=== PATIENT | female | born 1965 | race American Indian/Alaskan Native ===

== ENCOUNTER 2017-04-11 19:37 | Emergency (ER) | payer OTHER ==
[2017-04-11 20:49] LABS: Anion Gap 17 mmol/L; BUN/Creatinine Ratio 16; Blood Urea Nitrogen 11 mg/dL (7-17); Calcium 8.7 mg/dL (8.4-10.2); Carbon Dioxide 24 mmol/L (22-30); Chloride 101.5 mmol/L (98-107); Glucose 73 mg/dL (65-100); Potassium 3.8 mmol/L (3.6-5.0); Sodium 139 mmol/L (137-145)
--- NOTE | 2017-04-11 20:50 | Cat Scan Report ---
FINAL REPORT EXAM: CT HEAD/BRAIN WO CON HISTORY: neuro deficits < 6hrs or sx present upon awakening TECHNIQUE: Axial noncontrast CT images of the brain. Total exam DLP 1604.74 mGy-cm Comparison: None FINDINGS: Slit-like lateral ventricles, smaller than expected for the patient's age. No definite loss of the lacey-white junction however. No blood products. No midline shift. No mass effect. Ill-defined 10 millimeter hypodensity right posterior frontal lobe image 47. Cortical infarct not entirely be excluded. Clear imaged paranasal sinuses. No displaced calvarial fracture. IMPRESSION: No definite loss of the lacey-white differentiation but slit-like lateral ventricles are smaller than expected for the patient's age. There is crowding of the sulci versus lack of atrophy. Diffuse cerebral edema cannot be excluded. Ill-defined 10mm hypodensity right posterior frontal lobe are present. Recommend MR brain with diffusion-weighted imaging. No blood products. Findings are called and discussed with referring clinician, Dr. Pena, on 04/11/2017 at 2041 hours.
[2017-04-11 20:55] LABS: Basophils % (Auto) 0.5 % (0.0-1.8); Eosinophils % (Auto) 3.2 % (0.0-4.3); Hematocrit 40.4 % (30.3-42.9); Hemoglobin 13.4 gm/dl (10.1-14.3); Mean Corpuscular HGB Conc 33 % (30-34); Mean Corpuscular Hemoglobin 28 pg (28-32); Mean Corpuscular Volume 85 fl (79-97); Platelet Count 348 K/mm3 (140-440); Red Blood Count 4.75 M/mm3 (3.65-5.03); Red Cell Distribution Width 13.9 % (13.2-15.2); White Blood Count 9.8 K/mm3 (4.5-11.0)
[2017-04-11 21:09] LABS: INR 0.94 (0.87-1.13)
[2017-04-11 21:10] LABS: Partial Thromboplastin Time 32.1 Sec. (24.2-36.6)
--- NOTE | 2017-04-12 06:27 | Emergency Department Report ---
HPI - General Chief Complaint: Neuro Symptoms/Deficit Time Seen by Provider: 04/12/17 06:06 - HPI HPI: The patient's 51-year-old female who presents for evaluation of chest pain and right arm pain. The patient reports left-sided chest pain since 2 PM yesterday , approximately 16 hours prior to my evaluation, sharp in quality, 8/10 in severity, worse with movement of the arms, and associated with right-sided arm pain. She states that her arm pain is present throughout the entire arm, is also a/10 in severity, aching in quality, radiates from the mid bicep down to the distal forearm. She has a secondary complaint of bilateral fingertip and hand numbness constant for the past one month, not worsening or improving, without exacerbating or relieving factors. She denies, injury to the head or neck, headache, dyspnea, cough, syncope, hemoptysis, neck pain or stiffness, pain radiating from the neck, other paresthesias, any motor deficits, other focal neurological deficit. ED Past Medical Hx - Past Medical History Hx Hypertension: Yes Hx Asthma: Yes - Social History Smoking Status: Current Some Day Smoker Substance Use Type: None - Medications Home Medications: Home Medications Medication Instructions Recorded Confirmed Last Taken Type Amoxicillin [Amoxicillin TAB] 875 mg PO BID #20 tablet 04/23/14 Unknown Rx Fluticasone [Flonase] 1 spray NS QDAY #1 bottle 04/23/14 Unknown Rx Phenazopyridine [Pyridium] 200 mg PO TID PRN #6 tablet 04/23/14 Unknown Rx Sulfamethoxazole/Trimethoprim 1 each PO BID #14 tablet 04/23/14 Unknown Rx [Bactrim Ds] Cetirizine HCl [Allergy Relief] 10 mg PO DAILY #10 tablet 02/19/15 Unknown Rx Amoxicillin/K Clav Tab [Augmentin 1 tab PO Q12HR #20 tab 09/06/15 Unknown Rx 875MG TAB] Fluticasone [Flonase] 1 spray NS QDAY #1 bottle 09/06/15 Unknown Rx Lisinopril/Hydrochlorothiazide 1 tab PO QDAY #90 tablet 09/06/15 Unknown Rx [Zestoretic 10-12.5 mg] Prednisone [predniSONE 10 mg 10 mg PO .TAPER #1 tab.ds.pk 09/06/15 Unknown Rx (6-Day Pack, 21 Tabs)] traMADol [Ultram 50 MG tab] 50 mg PO Q6HR PRN #14 tablet 09/06/15 Unknown Rx Cyclobenzaprine HCl [Flexeril 5 MG 5 mg PO Q8HR PRN #15 tab 04/12/17 Unknown Rx TAB] Ibuprofen [Motrin] 800 mg PO Q8HR PRN #15 tablet 04/12/17 Unknown Rx ED Review of Systems ROS: Stated complaint: HTN Other details as noted in HPI Constitutional: denies: fever ENT: denies: throat or neck pain Respiratory: denies: cough, shortness of breath Cardiovascular: reports: chest pain Endocrine: denies unexplained weight loss or gain Gastrointestinal: denies: abdominal pain, nausea Genitourinary: denies: dysuria Musculoskeletal: reports arm pain denies: leg swelling Skin: denies: rash Neurological: denies: headache Hematological/Lymphatic: denies: easy bleeding or easy bruising Psych: denies sadness or hopelessness Physical Exam - Physical Exam Vital Signs: Vital Signs 04/11/17 04/12/17 04/12/17 19:48 01:15 01:30 Temperature 98 F Pulse Rate 71 66 61 Respiratory 16 22 20 Rate Blood Pressure 124/84 116/80 121/81 O2 Sat by Pulse 99 98 98 Oximetry 04/12/17 04/12/17 04/12/17 01:40 01:45 02:00 Temperature Pulse Rate 61 61 Respiratory 18 20 18 Rate Blood Pressure 116/80 116/76 O2 Sat by Pulse 97 97 95 Oximetry 04/12/17 04/12/17 04/12/17 02:31 03:00 03:30 Temperature Pulse Rate 65 60 58 L Respiratory 17 20 18 Rate Blood Pressure 139/89 109/72 107/68 O2 Sat by Pulse 95 96 95 Oximetry 04/12/17 04/12/17 04/12/17 04:00 04:30 05:00 Temperature Pulse Rate 58 L 61 61 Respiratory 19 21 14 Rate Blood Pressure 124/76 118/70 128/72 O2 Sat by Pulse 96 96 94 Oximetry 04/12/17 05:30 Temperature Pulse Rate 58 L Respiratory 18 Rate Blood Pressure 126/80 O2 Sat by Pulse 96 Oximetry Physical Exam: General: well-nourished, well-developed, no acute distress Head: Normocephalic, atraumatic Eyes: normal sclera, PERRL, EOM intact ENT: Mucous membranes are pink and moist Neck: trachea midline, neck supple, No neck stiffness, no cervical adenopathy Respiratory: Breath sounds equal bilaterally, no wheezing, rales, or rhonchi Cardio: S1 and S2 present, no murmurs, rubs, gallops, capillary refill is brisk Abdomen: Normoactive bowel sounds, soft abdomen, no rigidity, no guarding or rebound tenderness Chest WALL/Back: No tenderness to palpation of the chest wall Musc: Right biceps and ventral surface forearm tenderness to palpation present, most compartments are soft and pliable, inspection normal, no redness, ecchymosis, purpura, swelling, fluctuance, crepitus, deformity, or warmth to the entire right arm, sensation motor function intact throughout the right arm and hand, reported decrease in sensation presents to the distal digits of the hands bilaterally, reflexes 2+ symmetric in the upper and lower semis bilaterally, distal pulses intact, capillary refill brisk in the digits bilaterally Skin: No rash Neuro: alert oriented x4, normal cognition, speech normal, no facial drooping, no uvula or tongue deviation on protrusion, no deficit with rotation of neck or shoulder shrug, no obvious gross motor deficit in the upper or lower extremities with flexion or extension at the shoulder, elbow, wrist, hip, knee, or ankle bilaterally, no obvious gross sensation deficit, 2+ symmetric reflexes on DTR testing, no coordination deficit with [id number] or [id number] testing, romberg negative, patient able to to ambulate without abnormal gait Psych: Normal affect ED Course Vital Signs 04/11/17 04/12/17 04/12/17 19:48 01:15 01:30 Temperature 98 F Pulse Rate 71 66 61 Respiratory 16 22 20 Rate Blood Pressure 124/84 116/80 121/81 O2 Sat by Pulse 99 98 98 Oximetry 04/12/17 04/12/17 04/12/17 01:40 01:45 02:00 Temperature Pulse Rate 61 61 Respiratory 18 20 18 Rate Blood Pressure 116/80 116/76 O2 Sat by Pulse 97 97 95 Oximetry 04/12/17 04/12/17 04/12/17 02:31 03:00 03:30 Temperature Pulse Rate 65 60 58 L Respiratory 17 20 18 Rate Blood Pressure 139/89 109/72 107/68 O2 Sat by Pulse 95 96 95 Oximetry 04/12/17 04/12/17 04/12/17 04:00 04:30 05:00 Temperature Pulse Rate 58 L 61 61 Respiratory 19 21 14 Rate Blood Pressure 124/76 118/70 128/72 O2 Sat by Pulse 96 96 94 Oximetry 04/12/17 05:30 Temperature Pulse Rate 58 L Respiratory 18 Rate Blood Pressure 126/80 O2 Sat by Pulse 96 Oximetry ED Medical Decision Making - Lab Data Result diagrams: 04/11/17 20:10 04/11/17 20:10 - Medical Decision Making The patient was seen and examined by myself. The patient is placed on a awake overnight monitor and continuous pulse ox. On initial evaluation, the patient was found to be in no distress. EKG was negative for findings suggestive of acute cardiac infarct. Labs and imaging are obtained. The patient is given IM pain medicine. Chest x-ray is negative for pneumothorax, focal consolidation, pulmonary vascular congestion, pleural effusion, or other obvious acute cardiopulmonary disease process. Lab results were non-concerning including levels of troponin, WBC, hemoglobin, hematocrit, electrolytes, renal function. CT scan of the head is negative for acute or emergent intracranial disease process. There was a right posterior frontal lobe hypodensity identified not consistent with etiology of patient's symptoms as strokes do not cause isolated pain. The patient was reevaluated and reported that their symptoms were markedly improved. As the patient has a ELEANOR risk score less than 2, and a well 's score less than 2, the patient is at low risk of ACS or pulmonary emboli etiology of their symptoms. The patient is stable for discharge with outpatient follow-up. The patient is given follow-up and return instructions. The patient expressed understanding and agreed with the plan. The patient is discharged in stable condition. Critical care attestation.: If time is entered above; I have spent that time in minutes in the direct care of this critically ill patient, excluding procedure time. ED Disposition Clinical Impression: Acute chest pain, Pain of right upper extremity Disposition: - TO HOME OR SELFCARE Is pt being admited?: No Does the pt Need Aspirin: No Condition: Stable Instructions: Chest Pain (ED), Musculoskeletal Pain (ED), Muscle Strain (ED) Additional Instructions: Make sure to follow-up with neurologist yet been referred to today for arrangement of an outpatient MRI to further evaluate the incidental frontal brain lobe abnormality identified on your CT scan today. Referrals: PRIMARY CARE, [Primary Care Provider] - 3-5 Days MJ GOODMAN MD [Staff Physician] - 3-5 Days BRODIE COOK MD [Staff Physician] - 3-5 Days Time of Disposition: 06:26
[2017-04-12] MEDS ORDERED: TORADOL IM ONE (06:49)
[2017-04-12] MEDS ORDERED: TYLENOL PO ONE (06:49)
[2017-04-12 08:32] VITALS: BP 111/78
== END 2017-04-12 08:36 | disposition home or self-care (01) ==
LOC: ED 19:37
DX: R07.9 Chest pain, unspecified (principal); I10 Essential (primary) hypertension; F17.200 Nicotine dependence, unspecified, uncomplicated
CPT/HCPCS: 36415; 70450; 80048; 84484; 84703; 85025; 85610; 85670; 85730; 93005; 93010; 96372; 99285; J1885